=== PATIENT | male | born 1975 | race Caucasian/White ===

== ENCOUNTER 2020-12-13 13:26 | Emergency (ER) | payer OTHER, SELFPAY ==
--- NOTE | 2020-12-13 13:30 | ED.BACK ---
HPI - Back Pain/Injury General Chief Complaint: Back Pain/Injury Stated Complaint: back pain Source: patient Mode of arrival: ambulatory Limitations: no limitations History of Present Illness HPI Narrative: Patient is a 45 year old male who presents complaining of right flank/back pain. Patient reports started last pm and patient reports taking Ibuprofen with little relief. He reports taking Tramadol He denies known injury. He denies pain with movement. He reports pain increasing this am and states that he is unable to get comfortable at this time . He reports mild nausea from pain. Denies radiation of pain to legs, denies numbness and tingling in extremities. Denies urinary complaints. Patient has a history of HTN, patient reports a family history of kidney stones. Patient appears uncomfortable. MD elicited complaint: back pain Related Data Home Medications Medication Instructions Recorded Confirmed amlodipine 5 mg PO DAILY 12/13/20 12/13/20 escitalopram oxalate 20 mg PO DAILY 12/13/20 12/13/20 lisinopril-hydrochlorothiazide 1 tablet PO DAILY 12/13/20 12/13/20 rizatriptan 10 mg PO .PRN PRN 12/13/20 12/13/20 tramadol 100 mg PO BID 12/13/20 12/13/20 Allergies Allergy/AdvReac Type Severity Reaction Status Date / Time No Known Allergies Allergy Verified 11/02/13 15:26 Review of Systems Review of Systems: Narrative: CONSTITUTIONAL: Denies fever, chills, or sweats. EYES: Denies visual changes, redness, or discharge. ENT: Denies rhinorrhea, congestion, sore throat, or otalgia. CARDIOVASCULAR: Denies chest pain, palpitations, or edema. RESPIRATORY: Denies cough or dyspnea. GASTROINTESTINAL: Denies abdominal pain, vomiting, or diarrhea. Reports intermittent nausea GENITOURINARY: Denies dysuria or hematuria. Reports right flank pain SKIN: Denies rash or itching. MUSCULOSKELETAL: Denies back pain, joint pain, or myalgia. NEUROLOGIC: Denies headache, numbness, dizziness, or weakness. PSYCHIATRIC: Denies anxiety or depression. [facility] Past Medical History Medical History HTN (hypertension) Surgical History Surgical History H/O foot surgery Family History Family History (Updated 12/13/20 @ 13:49 by LEE ANN Simpson) Other Hypertension Social History Social History Smoking status: Current every day smoker Alcohol intake: current Substance use: never Gender identity (if verbalized by the patient): Male Comments At the time of signature, I have reviewed and agree with nursing past medical, surgical, social, and family history unless otherwise noted. Please see nursing chart for further information. There is no relevant family history pertinent to the presenting complaint. Exam Narrative: Exam Narrative: GENERAL: Well-appearing, well-nourished, and in no acute distress. HEAD: Normocephalic, atraumatic. EYES: EOMI. No redness or drainage. Conjunctiva are normal. ENT: Mucous membranes pink and moist. NECK: AROM. Supple. No lymphadenopathy. CHEST: No respiratory distress. Clear to auscultation. HEART: Regular rate and rhythm. No murmur appreciated. Normal peripheral pulses. : Right CVA tenderness with palpation GI: Soft, nontender without rebound, or guarding. No distention. Bowel sounds normal in all quadrants. EXTREMITIES: Normal range of motion. No edema. SKIN: Warm, dry, no rash. NEURO: No focal deficits. Alert and oriented x3. Gait steady. PSYCH: Normal affect. No signs of depression or anxiety. Course Vital Signs Vital signs: Vital Signs Temperature 36.4 C 12/13/20 13:31 Pulse Rate 77 12/13/20 13:31 Respiratory Rate 16 12/13/20 13:31 Blood Pressure 135/74 12/13/20 13:31 Pulse Oximetry 97 12/13/20 13:31 Temperature 36.4 C 12/13/20 13:31 Pulse Rate 77 12/13/20 13:31 Respiratory Rate
[2020-12-13 13:31] VITALS: BP 135/74; PULSE 77; RESP 16; TEMP 36.4; O2SAT 97
== END 2020-12-13 14:00 | disposition short-term general hospital (02) ==
LOC: EXPCOLL 13:29
PROVIDERS: Emergency Provider Nurse Practitioner
DX: R10.9 Unspecified abdominal pain (principal); F17.200 Nicotine dependence, unspecified, uncomplicated; I10 Essential (primary) hypertension
CPT/HCPCS: 81003; 99212; G0463

== ENCOUNTER 2020-12-13 14:13 | Emergency (ER) | payer OTHER, SELFPAY ==
--- NOTE | ~2020-12-13 | XR_ITS ---
XR lumbar spine 2-3V 12/13/2020 16:03 Indication: Low back pain Procedure: 3 views lumbar spine Comparison: 06/30/2018 Findings: Vertebral body heights are maintained. Mild disc narrowing at L4-5 and L5-S1. No acute frac ture, subluxation or spondylolisthesis. There are sclerotic lesions overlying the left pelvis which are unchanged, possibly bone islands or m elorheostosis. Given the lack of interval change these are likely benign. There is mild osteoarthriti s of the left hip. Impression: 1: Mild lumbar spondylosis. 2: Stable sclerotic lesions overlying the left pelvis/sacroiliac joint, most likely benign bone islan ds or melorheostosis. Reviewed, dictated and finalized at location B. Impression: 1: Mild lumbar spondylosis. 2: Stable sclerotic lesions overlying the left pelvis/sacroiliac joint, most li khalida benign bone islands or melorheostosis.
[2020-12-13 14:43] VITALS: BP 121/77; PULSE 68; RESP 16; TEMP 36.3; O2SAT 98
[2020-12-13 15:01] LABS: Basophils Absolute Auto 0.1 K/mm3 (0.0-0.1); Basophils Percent Auto 0.4 % (0.2-1.2); Eosinophils Absolute Auto 0.1 K/mm3 (0-0.3); Eosinophils Percent Auto 1.1 % (0-4.4); Hematocrit 47.3 % (42.0-52.0); Hemoglobin 16.3 g/dL (14.0-18.0); Immature Granulocyte Absolute 0.04 K/mm3 (0.00-0.031); Immature Granulocyte Percent A 0.4 % (0-0.5); Lymphocytes Absolute Auto 1.83 K/mm3 (0.9-3.2); Lymphocytes Percent Auto 16.1 % (18.3-44.2); Mean Corpuscular HGB Conc 34.5 g/dl (32-36); Mean Corpuscular Hemoglobin 29.7 pg (26-34); Mean Corpuscular Volume 86.2 fl (80-100); Mean Platelet Volume 10.2 fl (7.4-10.4); Monocytes Absolute Auto 0.9 K/mm3 (0.1-0.6); Monocytes Percent Auto 7.5 % (2.6-8.5); Neutrophils Absolute Auto 8.4 K/mm3 (1.3-6.7); Neutrophils Percent Auto 74.5 % (45.5-73.1); Platelet Count Result 240 k/mm3 (150-375); Red Blood Count 5.49 M/mm3 (4.6-6.20); Red Cell Distribution Width 12.7 % (11.5-14.5); White Blood Count 11.3 K/mm3 (4.5-10.0)
[2020-12-13 15:10] LABS: Anion Gap 5 mmol/L (8-16); Blood Urea Nitrogen 13 mg/dL (9-20); Calcium 9.1 mg/dL (8.4-10.2); Carbon Dioxide 29 mmol/L (22-30); Chloride 105 mmol/L (98-107); Estimated CRCL calculation 116 ml/min; Estimated Glomerular Filt Rate > 60; Glucose 81 mg/dL (75-110); Potassium 3.9 mmol/L (3.4-5.0); Sodium 139 mmol/L (137-145)
[2020-12-13 15:16] LABS: Add Urine Microscopic? NO; Appearance Urine Clear (Clear); Bilirubin Urine Negative (Negative); Blood Urine Negative (Negative); Color Urine Yellow (Yellow); Glucose Urine UA Negative (Negative); Ketones Urine Negative (Negative); Leukocyte Esterase Ur Negative LEU/UL (Negative); Nitrate Urine Negative (Negative); Protein Urine Negative (Negative); Specific Grav Ur 1.016 (1.001-1.035); Urobilinogen Urine Negative mg/dL (<2.0)
[2020-12-13 15:33] VITALS: BP 139/90; PULSE 73; RESP 14; O2SAT 97
--- NOTE | 2020-12-13 15:58 | ED.BACK ---
HPI - Back Pain/Injury General Chief Complaint: Back Pain/Injury <JOSSELIN Carver Last Filed: 12/13/20 16:39> Stated Complaint: right flank pain <JOSSELIN Carver Last Filed: 12/13/20 16:39> Time Seen by Provider: 12/13/20 15:25 <JOSSELIN Carver Last Filed: 12/13/20 16:39> Source: patient, RN notes reviewed and old records reviewed <JOSSELIN Carver Last Filed: 12/13/20 16:39> Mode of arrival: ambulatory <JOSSELIN Carver Last Filed: 12/13/20 16:39> Limitations: no limitations <JOSSELIN Carver Filed: 12/13/20 16:39> History of Present Illness HPI Narrative: Patient is a 45-year-old male who presents to emergency department with low back pain across the lumbar region that does not radiate made worse with activity and movement began on Friday patient has been taking his tramadol with minimal improvement went to urgent care today was referred to emergency department for further evaluation. Patient denies injury or trauma or recent illness or radicular symptoms or paresthesias or similar occurrence in the recent past <JOSSELIN Carver Last Filed: 12/13/20 16:39> Related Data Home Medications: Home Medications Medication Instructions Recorded Confirmed amlodipine 5 mg PO DAILY 12/13/20 12/13/20 escitalopram oxalate 20 mg PO DAILY 12/13/20 12/13/20 lisinopril-hydrochlorothiazide 1 tablet PO DAILY 12/13/20 12/13/20 rizatriptan 10 mg PO .PRN PRN 12/13/20 12/13/20 tramadol 100 mg PO BID 12/13/20 12/13/20 <JOSSELIN Carver Last Filed: 12/13/20 16:39> Allergies/Adverse Reactions: Allergies Allergy/AdvReac Type Severity Reaction Status Date / Time No Known Allergies Allergy Verified 11/02/13 15:26 <JOSSELIN Carver Last Filed: 12/13/20 16:39> Review of Systems Review of Systems: All systems reviewed & are unremarkable except as noted in HPI and below <JOSSELIN Carver Last Filed: 12/13/20 16:39> [facility] Past Medical History Medical History: Medical History HTN (hypertension) <Stoney Dwyer PA-C - Last Filed: 12/13/20 16:39> Surgical History Surgical History: Surgical History H/O foot surgery <Stoney Dwyer PA-C - Last Filed: 12/13/20 16:39> Family History Family History: Family History (Updated 12/13/20 @ 13:49 by LEE ANN Simpson) Other Hypertension <Stoney Dwyer PA-C - Last Filed: 12/13/20 16:39> Social History Social History: Social History Smoking status: Current every day smoker Alcohol intake: current Substance use: never Gender identity (if verbalized by the patient): Male <Stoney Dwyer PA-C - Last Filed: 12/13/20 16:39> Exam Narrative: Exam Narrative: GENERAL: Well-appearing, well-nourished, and in no acute distress. HEAD: Normocephalic, atraumatic. EYES: PERRLA and EOMI. ENT: Nares clear, no rhinorrhea or epistaxis. Mucous membranes moist. CHEST: Clear to auscultation. No respiratory distress. No wheezes rales or rhonchi HEART: Regular rate and rhythm. No murmur heard. Normal peripheral pulses. ABDOMEN: Soft, nontender, nondistended EXTREMITIES: Normal range of motion. No edema. Tenderness across the lumbar region no rash or other deformities noted SKIN: Warm, dry, no rash. NEURO: No focal deficits. Alert and oriented x3. Cranial nerves II through XII grossly intact. Motor and sensory intact and symmetrical in the extremities PSYCH: Normal mood and affect. <Stoney Dwyer PA-C - Last Filed: 12/13/20 16:39> Course Course Emergency Course: Patient in the room no distress aware of case findings treatment plan and diagnosis agreeing to follow-up as instructed no high risk changes in the imaging or blood work will be tr
[2020-12-13] MEDS: KETOROLAC (*BKC) 60 MG/2 ML VIAL IM (16:09)
[2020-12-13 16:52] VITALS: BP 131/83; PULSE 64; RESP 12; O2SAT 99
== END 2020-12-13 16:53 | disposition home or self-care (01) ==
PROVIDERS: Emergency Medicine; Emergency Provider General Practice
DX: M54.5 Low back pain (principal); I10 Essential (primary) hypertension; F17.200 Nicotine dependence, unspecified, uncomplicated; M47.816 Spondylosis without myelopathy or radiculopathy, lumbar region
CPT/HCPCS: 36415; 72100; 80048; 81003; 85025; 96372; 99283; J1885

== ENCOUNTER → 2023-09-11 16:14 | Outpatient (CLI) | payer OTHER, SELFPAY ==
--- NOTE | ~2023-09-11 | XR_ITS ---
EXAMINATION: XR shoulder LT min 2V DATE: 09/11/2023 16:31 INDICATION: Left shoulder pain. TECHNIQUE: 4 views of left shoulder were obtained. COMPARISON: Left shoulder radiographs 07/21/2018 FINDINGS: Bone alignment is normal. No fracture. There is mild osteoarthritis of glenohumeral joint a nd acromioclavicular joint characterized by tiny osteophytes. IMPRESSION: 1. Mild polyarticular osteoarthritis. Reviewed, dictated and finalized at location E. [facility]
== END ==
PROVIDERS: PCP Nurse Practitioner Family; Visit Provider Nurse Practitioner Family
DX: M25.512 Pain in left shoulder (principal); M19.012 Primary osteoarthritis, left shoulder
CPT/HCPCS: 73030